=== PATIENT | male | born 1975 | race Caucasian/White ===

== ENCOUNTER 2019-01-01 19:15 | Emergency (ER) | payer OTHER ==
[2019-01-01 19:52] LABS: Influenza A Molecular NEGATIVE (Negative); Influenza B Molecular NEGATIVE (Negative)
[2019-01-01] MEDS ORDERED: Ondansetron ODT TAB* 4 MG PO ONE (20:16)
--- NOTE | 2019-01-01 20:16 | UC ---
Nausea/Vomiting/Diarrhea HPI - HPI Summary HPI Summary: 43-year-old male comes in with a chief complaint of more than a week of nausea and vomiting and not feeling well. Vomiting mostly occurs at night. He has a long history of GERD and has had problems with his esophagus in the past. He reports having been on antacid medicines and having had an EGD while he lived in [place]. He has not been taking his antacid medicine. Is also been having some sinusitis symptoms. He's had sinus surgery in the past because of recurrent sinusitis. He is having some rhinorrhea. He gets epigastric abdominal pain just prior to vomiting and during the vomiting but the pain goes away afterwards. - History of Current Complaint Chief Complaint: UCGeneralIllness Stated Complaint: HEADACHES Time Seen by Provider: 01/01/19 19:51 Pain Intensity: 0 - Allergies/Home Medications Allergies/Adverse Reactions: Allergies Allergy/AdvReac Type Severity Reaction Status Date / Time No Known Allergies Allergy Verified 01/01/19 19:28 Home Medications: Home Medications Oxycodone HCl [Oxycodone HCl ER 30 mg] 30 mg PO TID 01/01/19 [History Confirmed 01/01/19] Tizanidine HCl [Zanaflex] 4 mg PO BID 01/01/19 [History Confirmed 01/01/19] PMH/Surg Hx/FS Hx/Imm Hx Previously Healthy: Yes GI/ History: Gastroesophageal Reflux - ESOPHAGEAL PROBLEMS - Surgical History Surgical History: Yes - SINUS SURGERY - Family History Known Family History: Positive: Non-Contributory - Social History Alcohol Use: Rare Substance Use Type: None Smoking Status (MU): Heavy Every Day Tobacco Smoker Review of Systems All Other Systems Reviewed And Are Negative: Yes Constitutional: Positive: Chills Skin: Positive: Negative Eyes: Positive: Negative ENT: Positive: Nasal Discharge, Sinus Congestion, Sinus Pain/Tenderness Respiratory: Positive: Negative Cardiovascular: Positive: Negative Gastrointestinal: Positive: Abdominal Pain, Vomiting, Nausea Genitourinary: Positive: Negative Motor: Positive: Negative Neurovascular: Positive: Negative Musculoskeletal: Positive: Other: - CHRONIC LOW BACK PAIN Neurological: Positive: Headache - INTERMITTENT FRONTAL Psychological: Positive: Negative Is Patient Immunocompromised?: No Physical Exam Triage Information Reviewed: Yes Appearance: No Pain Distress, Well-Nourished, Ill-Appearing - MILD Vital Signs: Initial Vital Signs Temp 98.8 F 01/01/19 19:24 Pulse 86 01/01/19 19:24 Resp 18 01/01/19 19:24 BP 134/75 01/01/19 19:24 Pulse Ox 98 01/01/19 19:24 Vital Signs Reviewed: Yes Eye Exam: Normal Eyes: Positive: Conjunctiva Clear ENT: Positive: Pharynx normal, Nasal congestion, TMs normal Neck exam: Normal Neck: Positive: Supple Respiratory: Positive: Lungs clear, Normal breath sounds, No respiratory distress Cardiovascular: Positive: RRR Abdomen Description: Positive: Nontender, Soft. Negative: CVA Tenderness (R), CVA Tenderness (L) Bowel Sounds: Positive: Present Musculoskeletal Exam: Normal Musculoskeletal: Positive: Strength Intact, ROM Intact Neurological Exam: Normal Neurological: Positive: Alert, Muscle Tone Normal Psychological Exam: Normal Psychological: Positive: Normal Response To Family, Age Appropriate Behavior Skin Exam: Normal Naus/Vom/Diarrhea Course/Dx - Course Course Of Treatment: At this time I will restart his antacid medicine. Also prescribe Zofran for the vomiting. Please having GERD symptoms which are irritating his esophagus causing the vomiting. Patient tells me he has primary care doctor that is going to follow up with. Also with frontal headaches and the rhinorrhea and treat for sinusitis with Augmentin. Checking a CBC CMP and lipase because of the recurrent vomiting and intermittent epigastric pain. Patient follows primary care doctor get reevaluated sooner if worse or any questions or concerns - Differential Dx/Diagnosis Provider Diagnosis: Nausea & vomiting, GERD (gastroesophageal reflux disease), Sinusitis Condition At Discharge: Stable Discharge - Sign-Out/Discharge Documenting (check all that apply): Patient Departure All imaging exams completed and their final reports reviewed: No Studies - Discharge Plan Condition: Stable Disposition: HOME Prescriptions: Amoxicillin/Clavulanate TAB* [Augmentin TAB 875*] 875 mg PO BID #20 tab Omeprazole 20 mg PO BID #30 capsule. Ondansetron ODT TAB* [Zofran 4 MG Odt TAB*] 4 mg PO Q6H PRN #15 tab.odt PRN Reason: Nausea Forms: *Work Release Referrals: [facility] [place] [Outside] Additional Instructions: FOLLOW UP WITH YOUR DOCTOR IF NOT COMPLETELY IMPROVED. GET RECHECKED FOR ANY WORSENING OF YOUR CONDITION OR QUESTIONS OR CONCERNS. - Billing Disposition and Condition Condition: STABLE Disposition: Home
[2019-01-01] MEDS ORDERED: Pantoprazole TAB * 40 MG TAB PO ONE (20:17)
[2019-01-01] MEDS ORDERED: Amoxicillin/Clavulanate TAB* 875 MG PO ONE (20:19)
[2019-01-02 10:36] LABS: ABS Basophils 0 10^3/ul (0-0.2); ABS Eosinophils 0.3 10^3/ul (0-0.6); ABS Lymphocytes 3.1 10^3/ul (1.0-4.8); ABS Monocytes 0.9 10^3/ul (0-0.8); ABS Neutrophils 5.2 10^3/ul (1.5-7.7); ABS Nucleated RBC 0 10^3/ul; Eosinophil % 3.5 %; Hematocrit 46 % (36-46); Hemoglobin 15.7 g/dL (14.0-18.0); Lymphocyte % 32.3 %; Mean Corpuscular HGB Conc 34 g/dL (31-36); Mean Corpuscular Hemoglobin 33 pg (27-31); Mean Corpuscular Volume 95 fL (80-94); Mean Platelet Volume 10.7 fL (7.4-10.4); Nucleated Red Blood Cells % 0.1; Platelet Count 201 10^3/uL (150-450); Red Blood Count 4.82 10^6 /uL (4.18-5.48); Red Cell Distribution Width 13 % (10.5-15); White Blood Count 9.6 10^3/uL (3.5-10.8)
[2019-01-02 15:58] LABS: Albumin 4.7 g/dL (3.2-5.2); Anion Gap 3 mmol/L (2-11); CO2 Carbon Dioxide 33 mmol/L (22-32); Calcium 9.9 mg/dL (8.6-10.3); Chloride 104 mmol/L (101-111); Potassium 4.3 mmol/L (3.5-5.0); Sodium 140 mmol/L (135-145)
[2019-01-02 16:04] LABS: ALT 21 U/L (7-52); AST 16 U/L (13-39); Albumin/Globulin Ratio 1.8 (1-3); Alkaline Phosphatase 56 U/L (34-104); Blood Urea Nitrogen 12 mg/dL (6-24); EGFR African American 137.5 (>60); EGFR Non-African American 113.7 (>60); Globulin 2.6 g/dL (2-4); Glucose 93 mg/dL (70-100); Total Protein 7.3 g/dL (6.4-8.9)
== END 2019-01-01 20:44 | disposition home or self-care (01) ==
LOC: UCEAST 19:15
DX: K21.9 Gastro-esophageal reflux disease without esophagitis (principal); R11.2 Nausea with vomiting, unspecified; J32.9 Chronic sinusitis, unspecified; F17.200 Nicotine dependence, unspecified, uncomplicated
CPT/HCPCS: 36415; 80053; 83690; 85025; 99203; A9270-GY; G0463

== ENCOUNTER → 2019-03-29 12:31 | Emergency (ER) | payer OTHER ==
[2019-03-29 12:53] VITALS: BP 120/72
== END | disposition left against medical advice (07) ==
LOC: ED 12:31
DX: R10.30 Lower abdominal pain, unspecified (principal); Z53.21 Procedure and treatment not carried out due to patient leaving prior to being seen by health care provider
CPT/HCPCS: 99281

== ENCOUNTER 2019-03-29 15:56 | Emergency (ER) | payer OTHER ==
[2019-03-29 16:15] VITALS: BP 123/73
--- NOTE | 2019-03-29 16:36 | UC ---
Abdominal Pain Male HPI - HPI Summary HPI Summary: Started w/ RLQ pain earlier today, feels its worsening. denies changes in bm. not assoc. w/ food or eating. pain worse w/ coughing and deep breaths. - History of Current Complaint Chief Complaint: UCAbdominalPain Stated Complaint: ABDOMINAL PAIN Time Seen by Provider: 03/29/19 16:27 Hx Obtained From: Patient Onset/Duration: Sudden Onset Timing: Constant Pain Intensity: 7 Pain Scale Used: 0-10 Numeric Location: Discrete At: RLQ Radiates: No Radiates to: RLQ Character: Sharp Aggravating Factor(s): Deep Breaths, Other - coughing, walking too hard Alleviating Factor(s): Rest - Allergies/Home Medications Allergies/Adverse Reactions: Allergies Allergy/AdvReac Type Severity Reaction Status Date / Time No Known Allergies Allergy Verified 03/29/19 16:12 PMH/Surg Hx/FS Hx/Imm Hx - Additional Past Medical History Additional PMH: no chronic issues - Surgical History Surgical History: Yes - Family History Known Family History: Positive: Non-Contributory - Social History Alcohol Use: Rare Substance Use Type: None Smoking Status (MU): Heavy Every Day Tobacco Smoker Review of Systems All Other Systems Reviewed And Are Negative: Yes Constitutional: Negative: Fever, Chills Skin: Negative: Negative Respiratory: Positive: Negative Cardiovascular: Positive: Negative Gastrointestinal: Positive: Abdominal Pain. Negative: Vomiting, Diarrhea, Nausea Motor: Negative: Weakness Neurological: Negative: Headache, Weakness Physical Exam Triage Information Reviewed: Yes Appearance: Pain Distress - mild Vital Signs: Initial Vital Signs Temp 98.6 F 03/29/19 16:13 Pulse 84 03/29/19 16:13 Resp 18 03/29/19 16:13 BP 123/73 03/29/19 16:13 Pulse Ox 98 03/29/19 16:13 Vital Signs Reviewed: Yes Respiratory Exam: Normal Cardiovascular Exam: Normal Abdomen Description: Positive: Guarding, [place] Tenderness. Negative : CVA Tenderness (R), CVA Tenderness (L), Peritoneal Signs Skin: Negative: Rashes Abd Pain Male Course/Dx - Course Course Of Treatment: Sudden RLQ pain that started today which he felt was worsening. ON exam pt was guarding and there was tenderness at RLQ. Pt is afebrile but there is concern of appendicitis which has to be ruled out. He is stable and vitals are good. Of note UA showed trace blood. Strongly urged pt. to go to ED, offered ambulance. Pt declined both and wants to wait at home. We discussed risks. - Differential Dx/Clinical Impression Differential Diagnosis/HQI/PQRI: Appendicitis, Renal Colic, Ureteral Stone, Urinary Tract Infection Provider Diagnosis: Right lower quadrant abdominal pain Discharge - Sign-Out/Discharge Documenting (check all that apply): Patient Departure All imaging exams completed and their final reports reviewed: No Studies - Discharge Plan Condition: Stable Disposition: AGAINST MEDICAL ADVICE Patient Education Materials: Acute Abdominal Pain (ED) Forms: *Work Release Referrals: No Primary Care Phys,NOPCP [Primary Care Provider] - Additional Instructions: I am concerned you have appendicitis. We are unable to rule that out her so please go to the emergency room. You have decided to wait and we have discussed the risk of this including rupture of appendix, sepsis and even . - Billing Disposition and Condition Condition: STABLE Disposition: Against Medical Advice - Attestation Statements Provider Attestation: Per institutional requirements, I have reviewed the chart, however, I was not consulted specifically or made aware of this patient by the midlevel provider. I did not personally evaluate, interact with , or disposition this patient.
== END 2019-03-29 17:06 | disposition left against medical advice (07) ==
LOC: UCEAST 15:56
DX: R10.31 Right lower quadrant pain (principal); F17.210 Nicotine dependence, cigarettes, uncomplicated
CPT/HCPCS: 81003; 99211; G0463

== ENCOUNTER → 2019-05-01 14:28 | Emergency (ER) | payer OTHER ==
[~2019-05-01 14:28] MED LIST: Lidocaine 1% MPF ** 5 ML VIAL INJ ONE; Tetan/Diph/Pertus SYR(Tdap)* 0.5 ML SYR(BOOSTRIX) use SYR IM ONE
--- NOTE | 2019-05-01 17:28 | ED ---
Laceration/Wound HPI - HPI Summary HPI Summary: Pt is a 43 y/o M presenting to the ED with a chief complaint of a laceration. He states he was moving a box spring and when he went to pick it up over his head, he clipped his finger on the vent. Patient is R handed. Unknown recent tetanus. Reporting 8/10 pain to L middle knuckle that radiates to his hand, throbbing. He denies any other sx, including fever, as well as any medical problems, fhx, or drug allergies. - History of Current Complaint Stated Complaint: MIDDLE LT FINGER LAC PER PT Time Seen by Provider: 05/01/19 16:37 Hx Obtained From: Patient Onset/Duration: Sudden Onset, Lasting Hours, Still Present Aggravating: Movement Alleviating: Compression Timing: Constant Onset Severity: Moderate Current Severity: Severe Pain Intensity: 8 Pain Scale Used: 0-10 Numeric Associated Signs & Symptoms: Pain Related Hx: Dominant Hand (Right) - Allergy/Home Medications Allergies/Adverse Reactions: Allergies Allergy/AdvReac Type Severity Reaction Status Date / Time No Known Allergies Allergy Verified 03/29/19 16:12 PMH/Surg Hx/FS Hx/Imm Hx Previously Healthy: Yes Endocrine/Hematology History: Denies: Hx Diabetes Cardiovascular History: Denies: Hx Hypertension Infectious Disease History: No Infectious Disease History: Denies: Traveled Outside the [place] in Last 30 Days - Family History Known Family History: Negative: Renal Disease - Social History Alcohol Use: Rare Hx Substance Use: No Substance Use Type: Reports: None Hx Tobacco Use: Yes Smoking Status (MU): Heavy Every Day Tobacco Smoker Review of Systems Negative: Fever Positive: Decreased ROM Positive: Other - laceration All Other Systems Reviewed And Are Negative: Yes Physical Exam - Summary Physical Exam Summary: Constitutional: Well-developed, Well-nourished, Alert. (-) Distressed Skin: Stellate laceration over the knuckle of the L middle finger PIP joint HENT: Normocephalic; Atraumatic Eyes: Conjunctiva normal Cardio: Rhythm regular, rate normal, Heart sounds normal; Intact distal pulses; Radial pulses are 2+ and symmetric. (-) Murmur Pulmonary/Chest wall: EWOB on RA Musculoskeletal: Hand PE Motor: Opposition of thumb and first finger intact Able to cross first and second finger Able to extend thumb Able to flex and extend wrist Able to spread fingers Sensory: Sensation intact in 1st, 2nd, and 5th digits Pulse: 2+ radial pulse intact. Brisk cap refill. Neuro: Alert, Oriented x3 Psych: Mood and affect Normal Triage Information Reviewed: Yes Vital Signs On Initial Exam: Initial Vitals Temp Pulse Resp BP Pulse Ox 97.9 F 90 18 132/91 98 05/01/19 14:36 05/01/19 14:36 05/01/19 14:36 05/01/19 14:36 05/01/19 14:36 Vital Signs Reviewed: Yes Procedures - Laceration/Wound Repair 1 Location: upper extremity - L middle finger Description: Stellate Anesthesia: Local, 1.0%, Lido Betadine Prep?: No Irrigated w/ Saline (ccs): 5 Laceration/Wound Explored: clean Closure: Single Layer Debridement: minimal Suture Type: Prolene - 4-0 Number of Sutures: 4 Layer Closure?: Yes Sterile Dressing Applied?: Yes Diagnostics - Vital Signs Vital Signs Temp Pulse Resp BP Pulse Ox 05/01/19 14:36 97.9 F 90 18 132/91 98 - Laboratory Lab Statement: Any lab studies that have been ordered have been reviewed, and results considered in the medical decision making process. - Radiology Hand XR Radiology Interpretation Completed By: Radiologist Summary of Radiographic Findings: 1. Dorsal soft tissue swelling about the third PIP without a radiopaque foreign body. 2. No fracture or traumatic malalignment. ED physician has reviewed this report. Laceration Repair Course/Dx - Course Course Of Treatment: 43-year-old right-handed male presents to laceration of the left PIP joint. - X-ray without foreign body, laceration repaired with 4-0 Prolene. Please see procedure note. - Tetanus updated. - Placed in finger splint to aid in healing and prevent wound dehiscence - Clinical Impression Provider Diagnoses: Finger laceration Discharge - Sign-Out/Discharge Documenting (check all that apply): Patient Departure Patient Received Moderate/Deep Sedation with Procedure: No - Discharge Plan Condition: Stable Disposition: HOME Patient Education Materials: Care For Your Stitches (ED) Referrals: [facility] [Outside] Additional Instructions: You were seen in the emergency room today for a laceration. You got sutures ( stitches). These need to be removed in 7 days. Please return to the emergency department or your primary care doctor for pain, redness, drainage from the area. Keep the area dry and clean. You can apply bacitracin to the laceration when healing. To help with scar formation, please apply sunscreen once the laceration is healed and protect the thumb. - Billing Disposition and Condition Condition: STABLE Disposition: Home - Attestation Statements Document Initiated by Junioribkaylee: Yes Documenting Scribe: Carol Williamson Provider For Whom Cuca is Documenting (Include Credential): Steve Pagan MD. Scribe Attestation: I, Carol Williamson, scribed for Steve Pagan MD. on 05/01/19 at 1857. Scribe Documentation Reviewed: Yes Provider Attestation: The documentation as recorded by the scribeCarol accurately reflects the service I personally performed and the decisions made by , Steve Pagan MD. Status of Scribe Document: Viewed
[2019-05-01 18:20] VITALS: BP 124/69
== END | disposition home or self-care (01) ==
LOC: ED 14:28
DX: S61.213A Laceration without foreign body of left middle finger without damage to nail, initial encounter (principal); Z23 Encounter for immunization; W45.8XXA Other foreign body or object entering through skin, initial encounter; Y92.9 Unspecified place or not applicable; F17.210 Nicotine dependence, cigarettes, uncomplicated
CPT/HCPCS: 12001; 90471; 90715; 96372; 99283

== ENCOUNTER 2019-05-16 12:01 | Emergency (ER) | payer SELFPAY ==
--- OUTSIDE RECORDS SUMMARY | 2019-05-16 12:10 | XMS REPORT | Continuity of Care Document ---
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 Primary Care Physician Unavailable Payers Date Identification Numbers Payment Provider Subscriber Effective: 2011 Policy Number: [id number] Medicaid THANH Altman Expires: 2011 PayID: [id number] [address] [place] [address] Policy Number: [id number] [facility] Christiano Altman Group Number: [id number] [address] PayID: [id number] [place] [address] Family History Date Family Member(s) Observation Comments Father due to Unknown Causes () Number of Children 2 Number of Siblings Siblings: 3 Social History Type Date Description Comments Sex Unknown Marital Status Lives With Spouse 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 Cigarette Use Current Cigarette Smoker 1/2 Pack Daily ETOH Use Rarely consumes alcohol Tobacco Use Start: Unknown Patient is a current smoker, smokes every day Recreational Drug Use Denies Drug Use Smoking Status Reviewed: 04/25/19 Patient is a current smoker, smokes every day Allergies, Adverse Reactions, Alerts Active Allergies Reaction Severity Comments Date NKDA 12/21/2010 Coconut swelling, hives, rash 07/03/2018 Medications Active Medications SIG Qnty Indications Ordering Provider Date Tizanidine HCL si/2-1 by 60tabs Jarvis Hough DO, 07/03/2018 4mg mouth every 12 MPH Tablets hours as directed Oxycodone HCL si by mouth 90tabs Jarvis Hough DO, 07/03/2018 30mg every 8 hours as MPH Tablets directed chronic pain patient Vital Signs Date Vital Result Comment 04/25/2019 3:16pm BP Systolic 130 mmHg BP Diastolic 84 mmHg Heart Rate 82 /min Respiratory Rate 20 /min Height 77 inches 6'5" Weight 206.00 lb Pain Level 5 Pain at this time. Pain Level With Medicine 4 on average with meds Pain Level Without Medicine 9 without meds BMI (Body Mass Index) 24.4 kg/m2 03/28/2019 10:55am BP Systolic 128 mmHg BP Diastolic 78 mmHg Heart Rate 80 /min Respiratory Rate 20 /min Height 77 inches 6'5" Weight 202.00 lb Pain Level 6 Pain at this time. Pain Level With Medicine 5 on average with meds Pain Level Without Medicine 9 without meds BMI (Body Mass Index) 24.0 kg/m2 02/28/2019 10:43am BP Systolic 128 mmHg BP Diastolic 84 mmHg Heart Rate 86 /min Respiratory Rate 20 /min Height 77 inches 6'5" Weight 202.00 lb Pain Level 5 Pain at this time. Pain Level With Medicine 4 on average with meds Pain Level Without Medicine 9 07/19 without meds BMI (Body Mass Index) 24.0 kg/m2 01/24/2019 10:44am BP Systolic 142 mmHg BP Diastolic 86 mmHg Heart Rate 84 /min Respiratory Rate 20 /min Height 77 inches 6'5" Weight 202.00 lb Pain Level 5 Pain at this time. Pain Level With Medicine 4 on average with meds Pain Level Without Medicine 9 without meds BMI (Body Mass Index) 24.0 kg/m2 12/27/2018 10:48am BP Systolic 130 mmHg BP Diastolic 86 mmHg Heart Rate 84 /min Respiratory Rate 20 /min Height 77 inches 6'5" Weight 199.00 lb Pain Level 4 Pain at this time. Pain Level With Medicine 3 on average with meds Pain Level Without Medicine 10 07/19 without meds BMI (Body Mass Index) 23.6 kg/m2 11/29/2018 11:06am BP Systolic 128 mmHg BP Diastolic 78 mmHg Heart Rate 72 /min Respiratory Rate 20 /min Height 77 inches 6'5" Weight 199.00 lb Pain Level 8 Pain at this time. Pain Level With Medicine 7 on average with meds Pain Level Without Medicine 10 07/19 without meds Pain Level After Procedure 5 BP Systolic Recheck 132 mmHg Pulse: 78 BP Diastolic Recheck 84 mmHg Pulse: 78 BMI (Body Mass Index) 23.6 kg/m2 11/01/2018 10:55am BP Systolic 140 mmHg BP Diastolic 82 mmHg Heart Rate 88 /min Respiratory Rate 20 /min Height 77 inches 6'5" Weight 194.00 lb Pain Level 5 Pain at this time. Pain Level With Medicine 5 on average with meds Pain Level Without Medicine 10 07/19 without meds BMI (Body Mass Index) 23.0 kg/m2 09/27/2018 2:07pm BP Systolic 130 mmHg BP Diastolic 78 mmHg Heart Rate 74 /min Respiratory Rate 20 /min Height 77 inches 6'5" Weight 191.00 lb Pain Level 4 Pain at this time. Pain Level With Medicine 3 on average with meds Pain Level Without Medicine 07/19 without meds BMI (Body Mass Index) 22.6 kg/m2 08/30/2018 10:22am BP Systolic 130 mmHg BP Diastolic 78 mmHg Heart Rate 80 /min Respiratory Rate 20 /min Height 77 inches 6'5" Weight 190.00 lb Pain Level 5 Pain at this time. Pain Level With Medicine 4 on average with meds Pain Level Without Medicine 07/19 without meds BMI (Body Mass Index) 22.5 kg/m2 08/01/2018 10:07am BP Systolic 132 mmHg BP Diastolic 84 mmHg Heart Rate 78 /min Respiratory Rate 20 /min Height 77 inches 6'5" Weight 190.00 lb Pain Level 7 Pain at this time. Pain Level With Medicine 6 on average with meds Pain Level Without Medicine 07/19 without meds BMI (Body Mass Index) 22.5 kg/m2 07/03/2018 2:20pm BP Systolic 122 mmHg BP Diastolic 74 mmHg Heart Rate 76 /min Respiratory Rate 20 /min Height 77 inches 6'5" Weight 190.00 lb Pain Level 5 Pain at this time. Pain Level Without Medicine 10 07/19 without meds BMI (Body Mass Index) 22.5 kg/m2 04/05/2011 9:41am BP Systolic 110 mmHg BP Diastolic 80 mmHg Heart Rate 67 /min Respiratory Rate 18 /min Weight 170.00 lb Pain Level 5 /10, Pain at this time. Pain Level With Medicine 6 03/19, on average with meds Pain Level Without Medicine 10 07/19 without meds 03/11/2011 11:28am BP Systolic 128 mmHg BP Diastolic 76 mmHg Heart Rate 74 /min Respiratory Rate 18 /min Weight 172.00 lb Pain Level 5 5-6/10, Pain at this time. Pain Level With Medicine 6 5-6/10, on average with meds Pain Level Without Medicine 10 07/19 without meds 02/09/2011 10:20am BP Systolic 100 mmHg BP Diastolic 60 mmHg Heart Rate 80 /min Respiratory Rate 18 /min Weight 166.00 lb Pain Level 6 6/10, Pain at this time. Pain Level With Medicine 1 /10, on average with meds Pain Level Without Medicine 10 07/19 without meds 01/06/2011 10:12am BP Systolic 110 mmHg BP Diastolic 80 mmHg Heart Rate 90 /min Respiratory Rate 18 /min Weight 168.00 lb Pain Level 4 4/10, Pain at this time. Pain Level With Medicine 4 4/10, on average with meds Pain Level Without Medicine 10 07/19 without meds 12/21/2010 9:15am BP Systolic 117 mmHg BP Diastolic 82 mmHg Heart Rate 92 /min Respiratory Rate 18 /min Weight 173.00 lb Pain Level 5 5/10, Pain at this time. Procedures Date Code Description Status 03/28/2019 91258 Therapeutic, Prophylactic Or Diagnostic Injection Subq/Im Completed 02/28/2019 99377 Therapeutic, Prophylactic Or Diagnostic Injection Subq/Im Completed 01/24/2019 48310 Therapeutic, Prophylactic Or Diagnostic Injection Subq/Im Completed 12/27/2018 53349 Therapeutic, Prophylactic Or Diagnostic Injection Subq/Im Completed 11/29/2018 04316 Brief Emotional/Behav Assessment W/ Scoring Doc Per Completed Standard Inst 11/29/2018 52234 Injection For Nerve Block, Other Peripheral Nerve Or Completed Branch 11/29/201867833 Injection, Single Or Mutiple Trigger Points One Or Two Completed Muscles 11/29/201842376 Injection, Tendon Origin/Insertion Completed 11/29/201865152 Injection, Tendon Origin/Insertion Completed 11/29/201805044 Inject Tendon/Ligament Completed 11/29/201868192 Inject Tendon/Ligament Completed 11/29/201821250 Inject Tendon/Ligament Completed 11/29/201824624 Inject Tendon/Ligament Completed 11/01/2018 04550 Omt 5-6 Body Regions Completed 08/01/2018 30347 Omt 5-6 Body Regions Completed Encounters Type Date Location Provider Dx Diagnosis Office Visit 03/28/2019 Main Office as Of Hough, Jarvis, DO, G89.29 Other chronic pain 11:00a 11/10/13 MPH M54.2 Cervicalgia M54.6 Pain in thoracic spine M54.5 Low back pain R53.83 Other fatigue Z79.891 assisted (current) use of opiate analgesic G90.3 Multi-system degeneration of the autonomic nervous system Office Visit 02/28/2019 10:30a Main Office as Jarvis Hough G89.29 Other chronic Of 11/10/13 DO, MPH pain M54.5 Low back pain M54.6 Pain in thoracic spine M54.2 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 R53.83 Other fatigue Office Visit 01/24/2019 11:00a Main Office as Jarvis Hough G89.29 Other chronic Of 11/10/13 DO, MPH pain M54.5 Low back pain M54.6 Pain in thoracic spine M54.2 Cervicalgia R53.83 Other fatigue Z79.891 assisted (current) use of opiate analgesic Office Visit 12/27/2018 10:45a Main Office as Jarvis Hough G89.29 Other chronic Of 11/10/13 DO, MPH pain M54.2 Cervicalgia M54.5 Low back pain M54.6 Pain in thoracic spine M54.16 Radiculopathy, lumbar region M48.062 Spinal stenosis, lumbar region with neurogenic claudication R53.83 Other fatigue 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 Office Visit 11/29/2018 11:00a Main Office as Jarvis Hough G89.29 Other chronic Of 11/10/13 DO, MPH pain M54.2 Cervicalgia M54.5 Low back pain M54.6 Pain in thoracic spine M54.16 Radiculopathy, lumbar region M65.88 Other synovitis and tenosynovitis, other site M79.18 Myalgia, other site Z79.891 assisted (current) use of opiate analgesic Z13.31 Encounter for screening for depression Office Visit 11/01/2018 10:30a Main Office as Jarvis Hough G89.29 Other chronic Of 11/10/13 DO, MPH pain M54.2 Cervicalgia M99.01 Segmental and somatic dysfunction of cervical region M54.5 Low back pain M99.03 Segmental and somatic dysfunction of lumbar region M54.6 Pain in thoracic spine M99.02 Segmental and somatic dysfunction of thoracic region M53.3 Sacrococcygeal disorders, not elsewhere classified M99.04 Segmental and somatic dysfunction of sacral region R10.2 Pelvic and perineal pain M99.05 Segmental and somatic dysfunction of pelvic region Z79.891 assisted (current) use of opiate analgesic Office Visit 09/27/2018 2:30p Main Office as Jarvis Hough, G89.29 Other chronic Of 11/10/13 DO, MPH pain M54.5 Low back pain M54.16 Radiculopathy, lumbar region M54.6 Pain in thoracic spine M25.552 Pain in left hip M25.551 Pain in right hip 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 Office Visit 08/30/2018 10:30a Main Office as Jarvis Hough G89.29 Other chronic Of 11/10/13 DO, MPH pain M54.5 Low back pain M54.16 Radiculopathy, lumbar region M54.2 Cervicalgia M54.6 Pain in thoracic spine M25.552 Pain in left hip M25.551 Pain in right hip 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 Office Visit 08/01/2018 10:15a Main Office as Jarvis Hough, G89.29 Other chronic Of 11/10/13 DO, MPH pain M54.5 Low back pain M54.16 Radiculopathy, lumbar region M99.03 Segmental and somatic dysfunction of lumbar region M54.2 Cervicalgia M99.01 Segmental and somatic dysfunction of cervical region M54.6 Pain in thoracic spine M99.02 Segmental and somatic dysfunction of thoracic region M53.3 Sacrococcygeal disorders, not elsewhere classified M99.04 Segmental and somatic dysfunction of sacral region M25.552 Pain in left hip 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 M25.551 Pain in right hip M99.05 Segmental and somatic dysfunction of pelvic region Office Visit 07/03/2018 1:45p Main Office as Jarvis Hough, G89.29 Other chronic Of 11/10/13 , MPH pain M48.062 Spinal stenosis, lumbar region with neurogenic claudication M54.16 Radiculopathy, lumbar region M54.5 Low back pain M51.37 Other intervertebral disc degeneration, lumbosacral region M54.2 Cervicalgia Z13.89 Encounter for screening for other disorder Z71.89 Other specified counseling F17.210 Nicotine dependence, cigarettes, uncomplicated 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 Z71.3 Dietary counseling and surveillance Office Visit 04/05/2011 9:45a Main Office as Of Jarvis Hough DO, 724.2 Lumbago 11/10/13 MPH 724.2 Lumbago Office Visit 03/11/2011 11:15a Main Office as Of Jarvis Hough DO, 724.2 Lumbago 11/10/13 MPH Office Visit 02/09/2011 10:15a Main Office as Of Jarvis Hough DO, 724.2 Lumbago 11/10/13 MPH Office Visit 01/06/2011 9:45a Main Office as Of Jarvis Hough DO, 724.2 Lumbago 11/10/13 MPH Office Visit 12/21/2010 9:00a Main Office as Of Jarvis Hough DO, 724.2 Lumbago 11/10/13 MPH Plan of Treatment Future Appointment(s):05/23/2019 10:45 am - Jarvis Hough DO MPH at Main Office as Of 11/10/1406 - Jarvis Hough DO, MPHG89.29 Other chronic painComments:Chronic. Symptoms and complaints discussed and reviewed today. No significant changes in physical findings. Continue current medical pain management.M54.6 Pain in thoracic spineComments:Chronic.Symptoms and complaints discussed and reviewed today. No significant changes in physical findings. Continue current medical pain management.M99.02 Segmental and somatic dysfunction of thoracic regionComments:Chronic. Symptoms and complaints discussed and reviewed today. Notable somatic dysfunctions noted warranting OMT. Continue current medical pain management and OMT. [id number]. OMT performed after evaluation. HVLA.M54.5 Low back painComments:Chronic. Symptoms and complaints discussed and reviewed today.No changes in physical findings. Patient is stable and comfortable when current medical therapy is rendered.M99.03 Segmental and somatic dysfunction of lumbar regionComments: Chronic. Symptoms and complaints discussed and reviewed today. Lumbar somatic dysfunctions noted warranting OMT. Continue current medical pain management and OMT. [id number]. OMT performed after evaluation. HVLA.M53.3 Sacrococcygeal disorders, not elsewhere classifiedComments:Chronic. Symptoms and complaints discussed and reviewed today. Notable sacral somatic dysfunctions warranting OMT. Patient is stable and comfortable with current medical therapy.M99.04 Segmental and somatic dysfunction of sacral regionComments:Chronic. Symptoms and complaints discussed and reviewed today. Sacral somatic dysfunctions noted warranting OMT. Continue current medical pain management and OMT. Sacral Torsion. OMT performed after evaluation. HVLA.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New Labs:Urine Drug Screen, Ordered: 04/25/19Comments:Urine drug screen sample taken. Rapid Point of Care Cup was reviewed in office with patient. Will send out UDT Rapid to Quantitative lab for confirmation testing. Urine Drug Testing (UDT) was done today to monitor opiate use and to monitor possible use of illicit substances. I will discuss the results at the next appointment from the Quantitative lab.The following tests were ordered:6 AM, AMPH, LING, YOSVANY, BUP, CARIS, COCM, COT, ETG, FENT, MCSHSG, OPI, OXY, PCP, TAPEN, XTSY, ZOLP. A urine drug test (UDT) was ordered for this patient and collected on site today. Creatinine has been ordered as well for specimen validity, not for kidney function. Preliminary UDT results are not final and should not be used to determine patient care or plan of treatment. Initially a qualitative immunoassay screen will be done. Any inconsistent or positive findings will be further tested with a more comprehensive quantitative confirmation LCMS study. It is part of the treatment process of prescribing controlled substances and is considered standard of care.AllComments:Continue current medical pain management; injection therapy, osteopathic manipulation, PT / modalities, and consults as needed to manage chronic pain.Non - opioid pain management discussed and optionsdiscussed.Side effects discussed; anticipatory guidance given. Patient clearly understand and agree with all medical treatments and suggestions. All medicines prescribed are adequate and appropriate for this patient's complaint of pain, medical history, physical, and personal goals.Goals of Treatment are to provide adequate and appropriate multidisciplinary medical pain management to increase/ maintain patient's quality of life and functionality while maintaining satisfactory side effect profile andminimizing mcc end-organ damage. Importance of regular nutrition throughout the day discussed.Activity as toleratedContinue with PCP
[2019-05-16 12:12] VITALS: BP 118/73
--- NOTE | 2019-05-16 13:04 | UC ---
Skin Complaint HPI - HPI Summary HPI Summary: PATIENT SUSTAINED A FLAP-LIKE LACERATION TO HIS LEFT THIRD FINGER OVERLYING THE PIP JOINT ON 05/01/19. WOUND WAS SUTURED IN THE [facility]. HE ARRIVES TODAY CONCERNED THAT IT IS INFECTED. HE HAS HAD SOME INCREASED PAIN AND REDNESS TO THE AREA. STITCHES DO NOT APPEAR TO BE HOLDING THE WOUND TOGETHER. NO FEVER. NO DRAINAGE. - History of Current Complaint Chief Complaint: UCUpperExtremity Time Seen by Provider: 05/16/19 12:14 Stated Complaint: WOUND CHECK Hx Obtained From: Patient Onset/Duration: Gradual Onset, Lasting Days, Still Present Timing: Constant Onset Severity: Moderate Current Severity: Moderate Pain Intensity: 5 Pain Scale Used: 0-10 Numeric Character: Pain, Redness Aggravating Factor(s): Touch Alleviating Factor(s): Nothing - Allergy/Home Medications Allergies/Adverse Reactions: Allergies Allergy/AdvReac Type Severity Reaction Status Date / Time No Known Allergies Allergy Verified 05/16/19 12:12 PMH/Surg Hx/FS Hx/Imm Hx Previously Healthy: Yes - Surgical History Surgical History: Yes Surgery Procedure, Year, and Place: sinus - Family History Known Family History: Negative: Renal Disease - Social History Alcohol Use: Rare Substance Use Type: None Smoking Status (MU): Heavy Every Day Tobacco Smoker Review of Systems All Other Systems Reviewed And Are Negative: Yes Constitutional: Positive: Negative Skin: Positive: Other - ERYTHEMA, WOUND DEHISCENCE Respiratory: Positive: Negative Cardiovascular: Positive: Negative Gastrointestinal: Positive: Negative Physical Exam Triage Information Reviewed: Yes Appearance: Well-Appearing, No Pain Distress, Well-Nourished Vital Signs: Initial Vital Signs Temp 98 F 05/16/19 12:03 Pulse 88 05/16/19 12:03 Resp 17 05/16/19 12:03 BP 118/73 05/16/19 12:03 Pulse Ox 100 05/16/19 12:03 Vital Signs Reviewed: Yes Eyes: Positive: Conjunctiva Clear ENT: Positive: Hearing grossly normal Neck: Positive: Supple Respiratory: Positive: No respiratory distress, No accessory muscle use Cardiovascular: Positive: Pulses Normal Abdomen Description: Positive: Soft Musculoskeletal: Positive: ROM Intact, No Edema Neurological: Positive: Alert Psychological: Positive: Age Appropriate Behavior Skin: Positive: Other - LACERATION LEFT 3RD FINGER OVERLYING PIP JOINT WITH EDGES DEHISCED. WHITE NON VIABLE TISSUE AROUND OPEN EDGE. NO DRAINAGE. MILD SURROUNDING ERYTHEMA. Course/Dx - Course Course Of Treatment: 5 SIMPLE INTERRUPTED SUTURES WERE IDENTIFIED. THEY HAD COME THROUGH THE SKIN EDGE AND WERE NO LONGER HOLDING THE WOUND TOGETHER. THE SUTURES WERE REMOVED WITHOUT DIFFICULTY. WOUND WAS CLEANSED AND NONVIABLE TISSUE REMOVED WITH FORCEPS AND SCISSORS. THIN LAYER OF BACITRACIN AND A NONSTICK BANDAGE WERE APPLIED. NEW SPLINT APPLIED BY RN. PATIENT IS TO FOLLOW-UP WITH WOUND CARE IN 2-3 DAYS. KEFLEX TO COVER FOR INFECTION. - Diagnoses Provider Diagnosis: Wound dehiscence Discharge - Sign-Out/Discharge Documenting (check all that apply): Patient Departure All imaging exams completed and their final reports reviewed: No Studies - Discharge Plan Condition: Stable Disposition: HOME Prescriptions: Cephalexin CAP* [Keflex 500 CAP*] 500 mg PO BID #14 cap Patient Education Materials: Wound Dehiscence (ED) Referrals: Eugenio Elam DO [Primary Care Provider] - If Needed Additional Instructions: APPLY THIN LAYER ANTIBIOTIC OINTMENT UNDER BANDAGE FOR A COUPLE OF DAYS ONLY. I RECOMMEND AVOIDING NEOMYCIN CONTAINING PRODUCTS THEY CAN BE HIGHLY ALLERGENIC. CHANGE BANDAGE MORNING AND NIGHT AND NEEDED IF IT BECOMES SOILED OR WET. KEEP IT CLEAN AND DRY. NO NOT SOAK IT. TAKE THE ANTIBIOTIC TWICE DAILY TO COVER FOR INFECTION. SEEK FOLLOW-UP IF YOU DEVELOP FURTHER SPREADING REDNESS OF THE SKIN, PURULENT DRAINAGE, FEVER, INCREASED PAIN OR ANY OTHER CONCERNING SYMPTOMS. HAVE THE WOUND RECHECKED IN 2-3 DAYS. CALL THE WOUND CARE CLINIC TO SET UP AN APPT. OR YOU CAN GO TO YOUR PCP OR RETURN HERE. [facility] [phone] - Billing Disposition and Condition Condition: STABLE Disposition: Home
== END 2019-05-16 13:00 | disposition home or self-care (01) ==
LOC: UCEAST 12:01
DX: T81.30XA Disruption of wound, unspecified, initial encounter (principal); Y83.8 Other surgical procedures as the cause of abnormal reaction of the patient, or of later complication, without mention of misadventure at the time of the procedure; F17.210 Nicotine dependence, cigarettes, uncomplicated
CPT/HCPCS: 99213; G0463